=== PATIENT | female | born 1940 | race Caucasian/White ===

== ENCOUNTER 2019-07-05 16:46 | Emergency (ER) | payer MEDICARE, BC, SELFPAY ==
--- NOTE | ~2019-07-05 | XR_ITS ---
EXAMINATION: XR shoulder LT min 2V EXAM DATE: 07/05/2019 17:36 INDICATION: Initial encounter following injury, with pain of the left shoulder. TECHNIQUE: The following left shoulder projections obtained: frontal projection with internal rotatio n, frontal projection with external rotation, Grashey, and scapular Y view (4+ views). There is no p rior study for comparison. FINDINGS: No evidence of left shoulder rotator cuff calcific tendinosis. There is mild to moderate glenohumeral and acromioclavicular joint primary osteoarthritis. There are no acute fractures or disl ocations identified. There is no subcutaneous gas. The soft tissue is unremarkable. There are no radiopaque foreign bodies. IMPRESSION: 1. Left shoulder exam without acute osseous findings. 2. Mild to moderate osteoarthritis. Reviewed, dictated and finalized at location A.
--- NOTE | ~2019-07-05 | XR_ITS ---
EXAMINATION: XR elbow LT min 3V EXAM DATE: 07/05/2019 17:35 INDICATION: Initial encounter following injury, with pain of the left elbow. TECHNIQUE: Left elbow frontal, lateral with flexion, and oblique projections obtained and reviewed. There is no prior study for comparison. FINDINGS: Left elbow anterior humeral line intact. There are no acute fractures or dislocations shar ntified. There is no subcutaneous gas. The soft tissue is unremarkable. There are no radiopaque f oreign bodies. IMPRESSION: 1. XR elbow LT min 3V exam without acute osseous findings. Reviewed, dictated and finalized at location A.
--- NOTE | 2019-07-05 16:59 | ED.UPPEXIN ---
HPI - Extremity Injury (Upper) General Chief Complaint: Extremity Injury, Upper Stated Complaint: Fell Left arm Pain Time Seen by Provider: 07/05/19 17:00 Source: patient and RN notes reviewed History of Present Illness HPI narrative: Patient is an 78-year-old female that presents the urgent care with complaints of left arm pain. Patient states that her left leg is a little sore but she has been walking without difficulty . Patient states that she fell, tripping over an old rolled up rug in her yard. Patient states that she fell onto her left shoulder/arm. Patient denies hitting her head or any loss of consciousness. Patient has not taken anything for the pain prior to arrival. States that it happened at approximately [address] to all days. No other acute complaints. No acute distress noted. Patient read the plan of care. Related Data Home Medications Medication Instructions Recorded Confirmed aspirin 07/05/19 atorvastatin 07/05/19 clopidogrel 07/05/19 cyanocobalamin (vitamin B-12) 07/05/19 escitalopram oxalate mg 07/05/19 fluticasone propionate INTRANASAL 07/05/19 isosorbide mononitrate mg PO 07/05/19 levothyroxine [Synthroid] 07/05/19 lorazepam 07/05/19 metoprolol succinate PO 07/05/19 metoprolol succinate [Toprol XL] PO 07/05/19 valsartan-hydrochlorothiazide tablet 07/05/19 Allergies Allergy/AdvReac Type Severity Reaction Status Date / Time Influenza Virus Vaccines Allergy Intermediate Swelling Unverified 10/09/15 03:42 Review of Systems Review of Systems: Narrative: CONSTITUTIONAL: Denies fever, chills, or sweats. EYES: Denies visual changes, redness, or discharge. ENT: Denies rhinorrhea, congestion, sore throat, or otalgia. CARDIOVASCULAR: Denies chest pain, palpitations, or edema. RESPIRATORY: Denies cough or dyspnea. GASTROINTESTINAL: Denies abdominal pain, nausea, vomiting, or diarrhea. GENITOURINARY: Denies dysuria or hematuria. SKIN: Denies rash or itching. MUSCULOSKELETAL: Reports of left arm pain NEUROLOGIC: Denies headache, numbness, or weakness. All other systems reviewed are negative, except as documented in HPI. [facility] Family History Family History (Updated 02/09/18 @ 11:58 by DOCTOR UNKNOWN) Other Diabetes mellitus Family history of arthritis Family history of cardiovascular disease Hypertension Social History Social History Smoking status: Never smoker Alcohol intake: current Comments At the time of my signature, I reviewed and agree with the nursing past medical, surgical, social, and family history. There is no relevant family history pertinent to the patient complaint. Exam Narrative: Exam Narrative: GENERAL: This is a well-nourished, well-developed patient, in no apparent distress. HEAD: normocephalic, atraumatic. EYES: PERRL. Sclera clear/white. Vision is grossly intact. EARS: External ears normal NOSE: External nose normal with no obvious nasal discharge THROAT: Mucous membranes moist NECK: Neck supple CARDIOVASCULAR: Regular rate and rhythm without murmurs, gallops, or rubs. RESPIRATORY: Clear to auscultation. Breath sounds equal bilaterally. No wheezes, rales, or rhonchi. SKIN: warm, intact with no suspicious lesions or rash, good texture and turgor. NEURO: awake, alert, and oriented to person, place and time. There were no obvious focal neurologic abnormalities. EXTREMITIES: Mild to moderate point tenderness to the posterior anterior left shoulder, elbow, left forearm-no obvious deformity noted. Positive strong left radial pulse with capillary refill less than 2 seconds. Range of motion to left shoulder and elbow not tested due to pain. Range of motion to left wrist within normal limits with mild pain to the forearm. Course Vital Signs Vital signs: Vital Signs Temperature 98.5 F 07/05/19 17:04 Pulse Rate 66 07/05/19 17:04 Respiratory Rate 16 07/05/19 17:04 Blood Pressure 143/60 H 07/05/19 17:04 Pulse Oximetry 99
[2019-07-05 17:04] VITALS: BP 143/60; PULSE 66; RESP 16; TEMP 36.9; O2SAT 99
== END 2019-07-05 17:58 | disposition home or self-care (01) ==
PROVIDERS: Emergency Provider Nurse Practitioner Family; PCP Internal Medicine
DX: M79.602 Pain in left arm (principal); M19.012 Primary osteoarthritis, left shoulder; W18.09XA Striking against other object with subsequent fall, initial encounter; Z86.73 Personal history of transient ischemic attack (TIA), and cerebral infarction without residual deficits; Z79.82 Long term (current) use of aspirin; R03.0 Elevated blood-pressure reading, without diagnosis of hypertension
CPT/HCPCS: 73030; 73080; 99214; G0463